=== PATIENT | female | born 1965 | race Caucasian/White ===

== ENCOUNTER 2020-09-19 13:04 | Inpatient (IN) | payer BC, OTHER ==
[~2020-09-19] VITALS: Ht 167.6 cm; Wt 86.5 kg
[2020-09-19 13:58] LABS: Basophils # (auto) 0.1 10 ^3/uL (0-0.2); Eosinophils # (auto) 0.1 10 ^3/uL (0-0.8); Lymphocytes # (auto) 0.9 10 ^3/uL (0.4-5.4)
[2020-09-19 14:01] LABS: Eosinophils % (auto) 1.4 % (0.0-7.0); Hematocrit 19.6 % (36.0-46.0); Hemoglobin 7.1 g/dL (12.2-16.2); Lymphocytes % (auto) 16.7 % (10.0-50.0); Mean Corpuscular Hemoglobin 34.4 pg (28.0-32.0); Mean Corpuscular Hgb Conc. 36.1 g/dL (32.0-36.0); Mean Corpuscular Volume 95.4 fL (80.0-100.0); Monocytes # (auto) 0.1 10 ^3/uL (0-1.3); Monocytes % (auto) 2.7 % (0.0-12.0); Neutrophils # (auto) 4.2 10 ^3/uL (1.6-8.6); Neutrophils % (auto) 78.2 % (37.0-80.0); Nucleated Red Blood Cells % 0.5 %; Platelet Count (auto) 420 10^3/uL (140-450); Red Blood Cells 2.05 10^6/uL (4.0-5.20); Red Cell Distribution Width 18.2 % (11.8-14.3); White Blood Cell 5.4 10^3/uL (4.4-10.8)
[2020-09-19 14:13] LABS: INR 1.05 (0.9-1.15); Partial Thromboplastin Time 27.2 sec (23.0-31.2)
[2020-09-19 14:16] LABS: Albumin 3.2 g/dL (3.4-5.0); Calcium 8.1 mg/dL (8.5-10.1)
[2020-09-19 14:19] LABS: BUN/Creatinine Ratio 22.6; Bilirubin, Total 1.6 mg/dL (0.2-1.0); Total Protein 6.6 g/dL (6.4-8.2)
[2020-09-19] MEDS ORDERED: HYDR-4833 PO (16:09)
[2020-09-19] MEDS ORDERED: NITROGLYCERIN 0.4 MG SL TAB SL PRN (18:30)
[2020-09-19] MEDS ORDERED: MORPHINE SULF INJ 2 MG/ML SYRINGE 1ML IV PRN ×2 (18:30)
[2020-09-19] MEDS ORDERED: ACETAMINOPHEN 500 MG TAB PO PRN (18:30)
[2020-09-19] MEDS ORDERED: ONDANSETRON HCL 4 MG/2 ML VIAL IV PRN (18:30)
[2020-09-19 20:32] LABS: % Iron Saturation 13.8 % (15-50)
[2020-09-19 20:42] LABS: Ferritin 183.1 ng/mL (10-322); Folate (Folic Acid) 2.34 ng/mL (5.38-24)
[2020-09-19 20:50] LABS: CRP High Sensitivity 5.52 mg/dL (< 0.3)
[2020-09-20] VITALS (9 sets, daily range): BP systolic 87–111; BP diastolic 34–62
[2020-09-20] MEDS: FAMOTIDINE 20 MG TAB PO SCH (09:48)
[2020-09-20] MEDS ORDERED: HYDR-4188 PO (14:20)
[2020-09-20] MEDS ORDERED: NAP500T PO (14:20)
[2020-09-20 14:21] LABS: Basophils # (auto) 0 10 ^3/uL (0-0.2); Basophils % (auto) 0.8 % (0.0-2.0); Eosinophils # (auto) 0.1 10 ^3/uL (0-0.8); Eosinophils % (auto) 1.2 % (0.0-7.0); Hematocrit 23.9 % (36.0-46.0); Hemoglobin 8.5 g/dL (12.2-16.2); Lymphocytes # (auto) 0.8 10 ^3/uL (0.4-5.4); Lymphocytes % (auto) 15.9 % (10.0-50.0); Mean Corpuscular Hemoglobin 33.1 pg (28.0-32.0); Mean Corpuscular Hgb Conc. 35.7 g/dL (32.0-36.0); Mean Corpuscular Volume 92.6 fL (80.0-100.0); Monocytes # (auto) 0.2 10 ^3/uL (0-1.3); Monocytes % (auto) 3.8 % (0.0-12.0); Neutrophils % (auto) 78.3 % (37.0-80.0); Nucleated Red Blood Cells % 0.1 %; Platelet Count (auto) 292 10^3/uL (140-450); Red Blood Cells 2.58 10^6/uL (4.0-5.20); Red Cell Distribution Width 15.9 % (11.8-14.3); White Blood Cell 5.1 10^3/uL (4.4-10.8)
[2020-09-20 14:41] LABS: Albumin 2.8 g/dL (3.4-5.0); Calcium 7.8 mg/dL (8.5-10.1); Potassium 4.2 mmol/L (3.5-5.1)
[2020-09-20 14:45] LABS: BUN/Creatinine Ratio 21.7; Bilirubin, Total 2.1 mg/dL (0.2-1.0); Total Protein 6.2 g/dL (6.4-8.2)
[2020-09-21 05:00] VITALS: BP 91/52
[2020-09-21 06:47] LABS: Basophils # (auto) 0 10 ^3/uL (0-0.2); Eosinophils # (auto) 0.1 10 ^3/uL (0-0.8); Lymphocytes # (auto) 0.6 10 ^3/uL (0.4-5.4); Monocytes # (auto) 0.1 10 ^3/uL (0-1.3); Neutrophils # (auto) 2.9 10 ^3/uL (1.6-8.6); Nucleated Red Blood Cells % 0.2 %
[2020-09-21 06:50] LABS: Basophils % (auto) 0.5 % (0.0-2.0); Eosinophils % (auto) 1.5 % (0.0-7.0); Hematocrit 21.4 % (36.0-46.0); Hemoglobin 7.7 g/dL (12.2-16.2); Lymphocytes % (auto) 15.5 % (10.0-50.0); Mean Corpuscular Hemoglobin 33.1 pg (28.0-32.0); Mean Corpuscular Hgb Conc. 35.8 g/dL (32.0-36.0); Mean Corpuscular Volume 92.5 fL (80.0-100.0); Neutrophils % (auto) 78.5 % (37.0-80.0); Platelet Count (auto) 261 10^3/uL (140-450); Red Blood Cells 2.31 10^6/uL (4.0-5.20); Red Cell Distribution Width 16.9 % (11.8-14.3); White Blood Cell 3.7 10^3/uL (4.4-10.8)
[2020-09-21 08:00] VITALS: BP 106/64
[2020-09-21] MEDS: FAMOTIDINE 20 MG TAB PO SCH (10:00)
[2020-09-21] MEDS ORDERED: PANTOPRAZOLE 40mg/50ML NS AE 50 ML IV SCH (13:00)
[2020-09-21 16:00] VITALS: BP 100/60
[2020-09-21 18:54] LABS: Hematocrit 22.1 % (36.0-46.0); Hemoglobin 7.9 g/dL (12.2-16.2)
[2020-09-22] VITALS: BP 95/57
[2020-09-22 05:24] LABS: Basophils # (auto) 0 10 ^3/uL (0-0.2); Eosinophils # (auto) 0.1 10 ^3/uL (0-0.8); Hemoglobin 7.1 g/dL (12.2-16.2); Monocytes # (auto) 0.2 10 ^3/uL (0-1.3)
[2020-09-22 05:29] LABS: Basophils % (auto) 0.6 % (0.0-2.0); Eosinophils % (auto) 3.5 % (0.0-7.0); Lymphocytes # (auto) 0.6 10 ^3/uL (0.4-5.4); Lymphocytes % (auto) 21.3 % (10.0-50.0); Mean Corpuscular Hemoglobin 33.5 pg (28.0-32.0); Mean Corpuscular Hgb Conc. 35.6 g/dL (32.0-36.0); Monocytes % (auto) 6.1 % (0.0-12.0); Neutrophils % (auto) 68.5 % (37.0-80.0); Nucleated Red Blood Cells % 0.1 %; Platelet Count (auto) 232 10^3/uL (140-450); Red Blood Cells 2.13 10^6/uL (4.0-5.20); Red Cell Distribution Width 16.8 % (11.8-14.3)
[2020-09-22 05:46] LABS: Potassium 4.5 mmol/L (3.5-5.1)
[2020-09-22 05:57] LABS: Albumin 2.4 g/dL (3.4-5.0); BUN/Creatinine Ratio 25.2; Bilirubin, Total 1.5 mg/dL (0.2-1.0); Calcium 7.9 mg/dL (8.5-10.1); Total Protein 5.7 g/dL (6.4-8.2)
[2020-09-22 08:00] VITALS: BP 103/64
[2020-09-22] MEDS: FAMOTIDINE 20 MG TAB PO SCH (10:12)
[2020-09-22] MEDS: HYDROcodone-ACET 5/325MG TAB PO PRN ×2 (10:13→17:56)
[2020-09-22] MEDS ORDERED: POTASSIUM CHLORIDE 8 MEQ TAB PO ONE (13:00)
[2020-09-22] MEDS ORDERED: FUROSEMIDE 20 MG TAB PO ONE (13:00)
[2020-09-22 16:00] VITALS: BP 97/58
[2020-09-22] MEDS: Ensure HIGH Protein Chocolate 8oz Bottle PO SCH (17:40)
[2020-09-22 22:01] VITALS: BP 126/59
[2020-09-23 05:30] VITALS: BP 104/60
[2020-09-23 07:21] LABS: Basophils # (auto) 0 10 ^3/uL (0-0.2); Eosinophils # (auto) 0.1 10 ^3/uL (0-0.8); Eosinophils % (auto) 3.8 % (0.0-7.0); Hemoglobin 7.2 g/dL (12.2-16.2); Lymphocytes # (auto) 0.4 10 ^3/uL (0.4-5.4); Monocytes # (auto) 0.1 10 ^3/uL (0-1.3); Neutrophils # (auto) 1.9 10 ^3/uL (1.6-8.6)
[2020-09-23 07:24] LABS: Basophils % (auto) 0.9 % (0.0-2.0); Hematocrit 20.3 % (36.0-46.0); Mean Corpuscular Hemoglobin 33.4 pg (28.0-32.0); Mean Corpuscular Hgb Conc. 35.3 g/dL (32.0-36.0); Mean Corpuscular Volume 94.5 fL (80.0-100.0); Monocytes % (auto) 4.9 % (0.0-12.0); Neutrophils % (auto) 73.4 % (37.0-80.0); Platelet Count (auto) 247 10^3/uL (140-450); Red Blood Cells 2.15 10^6/uL (4.0-5.20); Red Cell Distribution Width 18.8 % (11.8-14.3); White Blood Cell 2.5 10^3/uL (4.4-10.8)
[2020-09-23 07:33] LABS: BUN/Creatinine Ratio 29.2; Potassium 4.8 mmol/L (3.5-5.1)
[2020-09-23 08:00] VITALS: BP 91/48
[2020-09-23] MEDS: Ensure HIGH Protein Chocolate 8oz Bottle PO SCH ×3 (08:00→18:00)
[2020-09-23] MEDS: POTASSIUM CHLORIDE 8 MEQ TAB PO SCH (10:00)
[2020-09-23] MEDS: HYDROcodone-ACET 5/325MG TAB PO PRN ×2 (11:41→23:15)
[2020-09-23] MEDS: FUROSEMIDE 20 MG TAB PO SCH (11:46)
[2020-09-23] MEDS: FAMOTIDINE 20 MG TAB PO SCH (11:47)
[2020-09-23 16:00] VITALS: BP 92/52
[2020-09-23 22:00] VITALS: BP 93/54
[2020-09-24 05:00] VITALS: BP 115/64
[2020-09-24 08:00] VITALS: BP 106/71
[2020-09-24] MEDS: Ensure HIGH Protein Chocolate 8oz Bottle PO SCH ×3 (08:00→18:30)
[2020-09-24 08:28] LABS: Hemoglobin 7.4 g/dL (12.2-16.2); Platelet Count (auto) 278 10^3/uL (140-450)
[2020-09-24 08:30] LABS: Hematocrit 21.5 % (36.0-46.0); Mean Corpuscular Hemoglobin 32.9 pg (28.0-32.0); Mean Corpuscular Hgb Conc. 34.5 g/dL (32.0-36.0); Mean Corpuscular Volume 95.1 fL (80.0-100.0); Red Blood Cells 2.26 10^6/uL (4.0-5.20); Red Cell Distribution Width 19.1 % (11.8-14.3)
[2020-09-24 08:45] LABS: Potassium 4.3 mmol/L (3.5-5.1)
[2020-09-24] MEDS ORDERED: diphenhdrAMINE HCL 50 MG/1 ML VL IV ONE (08:45)
[2020-09-24] MEDS ORDERED: MIDAZOLAM HCL 1MG/1ML-2 ML VIAL IV ONE (08:45)
[2020-09-24] MEDS ORDERED: fentaNYL CITRATE 100 MCG/2 ML VL IV ONE (08:45)
[2020-09-24] MEDS ORDERED: LIDOCAINE VISCOUS 2% 15ML UD MT ONE (08:45)
[2020-09-24 08:51] LABS: BUN/Creatinine Ratio 30.8
[2020-09-24 09:02] LABS: White Blood Cell 1.9 10^3/uL (4.4-10.8)
[2020-09-24 09:04] LABS: Basophils % (manual) 0 (0.0-2.0); Metamyelocytes % 0; Myelocytes % 0; Promyelocytes % 0
[2020-09-24 12:54] LABS: Band Neutrophils % (manual) 7; Blast Cells 1; Eosinophils % (manual) 7 (0-7); Lymphocytes % (manual) 29 (10.0-50.0); Monocytes % (manual) 2 (0-12); Reactive Lymphocytes 5
[2020-09-24] MEDS ORDERED: SILDENAFIL CITRATE 20 MG TAB PO SCH (14:00)
[2020-09-24] MEDS: POTASSIUM CHLORIDE 8 MEQ TAB PO SCH (14:30)
[2020-09-24] MEDS: FUROSEMIDE 20 MG TAB PO SCH (14:30)
[2020-09-24] MEDS: FAMOTIDINE 20 MG TAB PO SCH (14:30)
[2020-09-24 16:24] VITALS: BP 109/68
== END 2020-09-24 18:30 | disposition home or self-care (01) | DRG 683 ==
LOC: EDBD 13:04 → ER 13:04 → OVERFLOW 13:05 → TELE-CENTR 09-20 18:37
PROVIDERS: ADMIT Nurse Practitioner Acute Care; ATTEND Family Medicine
PROC: 30233N1 Transfusion of Nonautologous Red Blood Cells into Peripheral Vein, Percutaneous Approach (ICD-10-PCS; principal; 2020-09-20)
PROC: B244ZZ4 Ultrasonography of Right Heart, Transesophageal (ICD-10-PCS; 2020-09-24)
DX: N17.0 Acute kidney failure with tubular necrosis (principal); D84.9 Immunodeficiency, unspecified; E44.0 Moderate protein-calorie malnutrition; E87.1 Hypo-osmolality and hyponatremia; D50.9 Iron deficiency anemia, unspecified; I07.1 Rheumatic tricuspid insufficiency; I50.810 Right heart failure, unspecified; M32.9 Systemic lupus erythematosus, unspecified; M81.0 Age-related osteoporosis without current pathological fracture; N18.9 Chronic kidney disease, unspecified; Z20.822 Contact with and (suspected) exposure to COVID-19; M19.90 Unspecified osteoarthritis, unspecified site; Z72.0 Tobacco use; Z80.0 Family history of malignant neoplasm of digestive organs; Z68.30 Body mass index [BMI] 30.0-30.9, adult
CPT/HCPCS: 36415; 36430; 71045; 74176; 76705; 78582; 80048; 80053; 80320; 82306; 82607; 82728; 82746; 83010; 83516; 83540; 83550; 83615; 83880; 84425; 84484; 85007; 85014; 85018; 85025; 85027; 85045; 85379; 85610; 85652; 85730; 86141; 86225; 86235; 86850; 86880; 86900; 86901; 86920; 87426; 93005; 93306; 93312; 93970; 96374; 96375; 99152; G0378; J2250; J2405

== ENCOUNTER 2021-02-15 10:10 | Day surgery (SDC) | payer BC ==
[~2021-02-15] VITALS: Ht 167.6 cm; Wt 81.6 kg
[~2021-02-15 10:10] MED LIST: CHOL1CAP21 PO; FOLI1TAB6 PO; FURO1TAB31 PO; HYDR-4188 PO; LORA0.5T20 PO; METH2.5T PO; OMEP-263 PO; POTA10TA32 PO; SILD20TA12 PO
[2021-02-15] MEDS ORDERED: IODIXANOL 320MG/ML 100ML BTL IV ONE (12:49)
[2021-02-15] MEDS ORDERED: LIDOCAINE 2%HCL (LOCAL ANESTH.) INJ 20ML MDV ONE (12:49)
[2021-02-15] MEDS ORDERED: fentaNYL CITRATE 100 MCG/2 ML VL ONE (13:00)
[2021-02-15] MEDS ORDERED: MIDAZOLAM HCL 2MG/2ML 2ml VIAL (1mg/ml) ONE (13:00)
[2021-02-15] MEDS ORDERED: ANGIOMAX 250 MG VIAL IV ONE (13:00)
[2021-02-15] MEDS ORDERED: SODIUM CHL 0.9% 0 ML ONE (13:01)
[2021-02-15] MEDS ORDERED: ONDANSETRON HCL 4 MG/2 ML VIAL IV PRN (14:30)
[2021-02-15] MEDS ORDERED: ACETAMINOPHEN 500 MG TAB PO PRN (14:30)
== END 2021-02-15 16:25 | disposition home or self-care (01) ==
LOC: CATH 10:10
PROVIDERS: ATTEND Internal Medicine
DX: R07.89 Other chest pain (principal); I25.10 Atherosclerotic heart disease of native coronary artery without angina pectoris; K21.9 Gastro-esophageal reflux disease without esophagitis; A18.4 Tuberculosis of skin and subcutaneous tissue; Z20.822 Contact with and (suspected) exposure to COVID-19; Z88.5 Allergy status to narcotic agent; Z98.890 Other specified postprocedural states; Z79.899 Other long term (current) drug therapy; Z68.29 Body mass index [BMI] 29.0-29.9, adult
CPT/HCPCS: 93306; 93456; C1751; C1760; C1894; J1644; J2250; J3010; Q9967; U0003; 93005; 99152; 99153